=== PATIENT | female | born 2000 | race Caucasian/White ===

== ENCOUNTER 2019-05-15 01:23 | Emergency (ER) | payer OTHER, SELFPAY ==
[2019-05-15 01:24] VITALS: BP 128/99; PULSE 84; RESP 23; TEMP 36.1; O2SAT 100; BMI 24.7
--- NOTE | 2019-05-15 02:24 | ED.DCSUM_ITS ---
History of Present Illness Chief Complaint: ETOH Intox Narrative: Patient is a 18-year-old female who presents with acute alcohol intoxication. She was sent over by the [facility]. She did have nausea and vomiting. The time of my evaluation she has no complaints. Past Medical History - Allergies and Home Meds Allergies/Adverse Reactions: Allergies No Known Allergies Allergy (Verified 05/15/19 01:28) Primary Care Physician: Surya Ross,Out of [NON-STAFF] - Past Medical History: None Smoking Status: Never smoker Review of Systems ROS: Unable to Obtain Physical Exam Vital Signs/Narrative: Vital Signs Temp Pulse Resp BP Pulse Ox 05/15/19 01:24 96.9 F L 84 23 H 128/99 H 100 Inital Vital Signs reviewed: Yes General: Well nourished Head: Normocephalic Eyes: EOMI ENT: Moist mucous membranes Neck: Supple Cardiovascular: Regular rate, Regular rhythm Respiratory: No distress, CTA bilaterally Abdomen: Soft, Nontender Skin: Normal color Neurological: - - Patient appears clinically intoxicated with slurred speech Psychological: Tearful Diagnostic/Tx/Re-eval - Medical Decision Making Patient was initially tearful and repetitively apologizing to nursing staff. I was unable to immediately evaluate the patient. At the time my evaluation she was sleeping comfortably. Upon being woken she has no complaints and does admit to alcohol use. She states she did go back to sleep. We will observe/monitor the patient until clinically sober at which time plan will be discharge. On re-evaluation patient ambulating without difficulty, answering all questions appropriately with no complaints. Patient will be discharged back to [facility]. ED Disposition - Plan for ED Patient: Disposition: Home or Assisted Living Diagnosis: Alcohol intoxication Instructions: Alcohol Intoxication Referrals: Surya Ross,Out of [NON-STAFF] -
[2019-05-15 03:52] VITALS: BP 90/59; PULSE 75; RESP 22
[2019-05-15 05:36] VITALS: BP 103/59; PULSE 82; RESP 15
[2019-05-15 06:08] VITALS: BP 120/78; PULSE 78; RESP 16; O2SAT 100
--- NOTE | 2019-05-15 06:08 | ED.RN ---
CALLED [facility] FOR RIDE BACK TO [facility]. LEFT MESSAGE FOR [facility] TO CALL BACK. WILL ATTEMPT TO CALL THEM AGAIN.
--- NOTE | 2019-05-15 06:17 | ED.RN ---
PT WANTED TO GO BACK TO HER [facility] HER ROOM MATE IS THERE AND IT'S MORNING. PT AMBULATING WITHOUT ASSISTANCE. AOX4, LEFT WITH SECURITY.
== END 2019-05-15 06:17 | disposition home or self-care (01) ==
PROVIDERS: Emergency Provider Emergency Medicine; Family Provider Pediatrics; PCP Pediatrics
DX: F10.129 Alcohol abuse with intoxication, unspecified (principal); Y90.9 Presence of alcohol in blood, level not specified
CPT/HCPCS: 99283